=== PATIENT | male | born 1950 | race Caucasian/White ===

== ENCOUNTER 2017-04-27 15:17 | Emergency (ER) | payer OTHER ==
[~2017-04-27 15:17] MED LIST: ACETAMINOPHEN PO; ASPIRIN PO; BENTYL20 MG PO; CHOLESTYRAMINE P4 GM PO; DIPHENHYDRAMINE50 M1 PO; FLOMAX0.4 M1 PO; HYDROCODONE-APA1 T41 PO; LORTAB 5-325 M1 EACH PO; NO MEDICATIONS; PLAVIX PO; PLETAL100 MG PO; PLETAL50 MG PO; PRILOSEC20 MG PO; PROZAC PO; PROZAC10 MG PO; SYNTHROID PO; SYNTHROID25 MCG PO; ZYRTEC PO; ZYRTEC10 M2 PO
[2017-04-27] MEDS ORDERED: ASPIRIN PO (15:19)
[2017-04-27] MEDS ORDERED: CHOLESTEROL MED PO (15:20)
== END 2017-04-27 16:21 | disposition home or self-care (01) ==
LOC: SED 15:17
DX: S80.861A Insect bite (nonvenomous), right lower leg, initial encounter (principal); Z88.6 Allergy status to analgesic agent; Z88.8 Allergy status to other drugs, medicaments and biological substances; Z87.891 Personal history of nicotine dependence; Z23 Encounter for immunization; W57.XXXA Bitten or stung by nonvenomous insect and other nonvenomous arthropods, initial encounter; Y92.098 Other place in other non-institutional residence as the place of occurrence of the external cause
CPT/HCPCS: 90471; 90715; 99283